=== PATIENT | female | born 1955 | race Caucasian/White ===

== ENCOUNTER 2017-01-31 07:20 | Day surgery (SDC) | payer BC ==
[2017-01-31] MEDS ORDERED: Lactated Ringers 1,000 ML IV SCH ×2 (08:00→08:30)
[2017-01-31] MEDS ORDERED: Ondansetron 4 MG/2 ML SDV IVPUSH ONE (09:20)
[2017-01-31] MEDS ORDERED: Midazolam 1 MG/ML 2 ML SDV IV ONE (09:20)
[2017-01-31] MEDS ORDERED: Propofol 200 MG/20 ML SDV IV ONE (09:20)
[2017-01-31] MEDS ORDERED: Lidocaine 2% 100 MG/5 ML Syringe IVPUSH ONE (09:20)
--- NOTE | 2017-01-31 09:24 | PCM.HPR ---
H & P Addendum review - H & P Addendum Review Date of Original H & P: 01/21/16 Date Reviewed: 01/31/17 Time Reviewed: 09:15 Patient was examined: No Changes
--- NOTE | 2017-01-31 10:23 | PCM.OPNOTE ---
- General Post-Op/Procedure Note Date of Surgery/Procedure: 01/31/17 Operative Procedure(s): EGD with BX. Colonoscopy Findings: Gastritis Normal Colon Pre Op Diagnosis: Abd Pain, Melena, diarrhea Post-Op Diagnosis: Same Primary Surgeon: Sushant Gray Anesthesia Provider: Vinicius Black Pathology: Stomach Bx's EBL in mLs: 0 Complications: None Condition: Good
[2017-01-31 12:25] VITALS: BP 130/84
--- NOTE | 2017-01-31 17:56 | OR ---
DATE OF OPERATION: 01/31/2017 SURGEON: Sushant Gray MD PREOPERATIVE DIAGNOSES: 1. Melena with history of ulcers. 2. Abdominal pain. 3. Diarrhea. POSTOPERATIVE DIAGNOSES: 1. Gastritis. 2. Normal colonoscopy. 3. Small hiatal hernia. OPERATION PERFORMED: 1. Esophagogastroduodenoscopy with biopsies. 2. Colonoscopy. ANESTHESIA: IV sedation. PROCEDURE IN DETAIL: The patient was brought to the procedure room, where she was placed on her left side and IV sedation administered. Anesthetic gargle had been given and the oral bite block was placed. Upper endoscope was advanced into the esophagus under direct vision. Vocal cords were viewed and were normal. Scope was advanced to the third portion of the duodenum. Duodenal and pylorus were normal. Antrum has diffuse mild gastritis. Near the distal body especially along the end of the lesser curve and greater curve, was more moderate gastritis. There was even what appeared to be some healing erosions present. I did take biopsies from these areas and we will check for Helicobacter pylori. The remaining body and fundus were normal. Retroflexion reveals a small hiatal hernia. The squamocolumnar junction was normal. There was no evidence of reflux esophagitis. Air was removed from the stomach and the scope withdrawn through the remaining esophagus, which appears normal. The patient tolerated this portion of the procedure well. Next, colonoscopy was performed, after digital rectal exam was performed, which was normal. The colonoscope was inserted and advanced to the level of the cecum with some difficulty getting through a tortuous sigmoid colon. The cecum was reached and confirmed by identifying the appendiceal lumen and ileocecal valve. Prep was good and surfaces were well visualized. Upon withdrawing the scope, the ascending, transverse, and descending colon were normal in appearance. The sigmoid colon and rectum were normal. I was unable to identify any diverticula even though she has a history of diverticulitis. Air was removed and the scope was withdrawn. The patient tolerated the procedure well and returned to recovery in stable condition. RECOMMENDATIONS: The patient will be contacted with the pathology report when it returns. Recommend routine colon screening again in 5 years. /[id number] SALINA/GABRIEL
== END 2017-01-31 11:26 | disposition home or self-care (01) ==
LOC: FB.SDS 07:20
PROVIDERS: ATTEND Surgery
DX: K29.50 Unspecified chronic gastritis without bleeding (principal); K44.9 Diaphragmatic hernia without obstruction or gangrene; K21.9 Gastro-esophageal reflux disease without esophagitis; I10 Essential (primary) hypertension; Z88.1 Allergy status to other antibiotic agents; Z88.8 Allergy status to other drugs, medicaments and biological substances; Z91.040 Latex allergy status; Z91.018 Allergy to other foods; Z79.899 Other long term (current) drug therapy; Z79.82 Long term (current) use of aspirin
CPT/HCPCS: 43239; 45378; 88305; J2250; J2405; J2704; J7120

== ENCOUNTER 2017-02-21 06:52 | Day surgery (SDC) | payer BC ==
[~2017-02-21 06:52] MED LIST: Lactated Ringers 1,000 ML IV SCH; Sodium Chloride 0.9% 10 ML Syringe FLUSH PRN
[2017-02-21] MEDS ORDERED: Sugammadex Sodium 200 MG/2 ML VIAL IV ONE (08:00)
[2017-02-21] MEDS ORDERED: Midazolam 1 MG/ML 2 ML SDV IV ONE (08:00)
[2017-02-21] MEDS ORDERED: Propofol 200 MG/20 ML SDV IV ONE (08:00)
[2017-02-21] MEDS ORDERED: Lactated Ringers 1,000 ML IV ONE (08:00)
[2017-02-21] MEDS ORDERED: Dexamethasone 4 MG/ML 5 ML MDV IVPUSH ONE (08:00)
[2017-02-21] MEDS ORDERED: fentaNYL 100 MCG/2 ML SDV IV ONE (08:00)
[2017-02-21] MEDS ORDERED: Scopolamine 1.5 MG Transdermal Patch TOP ONE (08:00)
[2017-02-21] MEDS ORDERED: Ondansetron 4 MG/2 ML SDV IVPUSH ONE (08:00)
[2017-02-21] MEDS ORDERED: ePHEDrine 50 MG/ML SDV IV ONE (08:00)
[2017-02-21] MEDS ORDERED: Succinylcholine/Normal Saline 200 MG/10 ML Syringe IV ONE (08:00)
[2017-02-21] MEDS ORDERED: Rocuronium 100 MG/10 ML MDV IV ONE (08:00)
[2017-02-21] MEDS ORDERED: Ketorolac 30 MG/ML SDV IVPUSH ONE (08:00)
[2017-02-21] MEDS ORDERED: diphenhydrAMINE 50 MG/ML SDV IV ONE (08:00)
[2017-02-21] MEDS ORDERED: HYDROmorphone 2 MG/ML SDV IVPUSH PRN (08:08)
[2017-02-21] MEDS ORDERED: Ondansetron 4 MG/2 ML SDV IVPUSH PRN (08:08)
[2017-02-21] MEDS ORDERED: fentaNYL 100 MCG/2 ML SDV IVPUSH PRN (08:08)
--- NOTE | 2017-02-21 08:22 | PCM.HPR ---
H & P Addendum review - H & P Addendum Review Date of Original H & P: 02/10/17 Date Reviewed: 02/21/17 Time Reviewed: 08:00 Patient was examined: No Changes Please note any Changes: ok to proceed with lap tyron
--- NOTE | 2017-02-21 09:24 | PCM.OPNOTE ---
- General Post-Op/Procedure Note Date of Surgery/Procedure: 02/21/17 Operative Procedure(s): Lap Stacy Pre Op Diagnosis: Chronic Cholecystitis Post-Op Diagnosis: Same Anesthesia Technique: General ET tube Primary Surgeon: Sushant Gray Anesthesia Provider: Vinicius Black EBL in mLs: 10 Complications: None Condition: Good
[2017-02-21 11:57] VITALS: BP 131/84
--- NOTE | 2017-02-21 13:56 | OR ---
DATE OF OPERATION: 02/21/2017 SURGEON: Sushant Gray MD PREOPERATIVE DIAGNOSIS: Chronic cholecystitis. POSTOPERATIVE DIAGNOSIS: Chronic cholecystitis. PROCEDURE: Laparoscopic cholecystectomy. ANESTHESIA: General endotracheal. DESCRIPTION OF PROCEDURE: The patient was brought to the operating room, where general endotracheal anesthesia was administered. The abdomen was prepped with ChloraPrep and draped sterilely. An infraumbilical incision was made and extended into the peritoneal cavity without difficulty. The remaining three 5 mm ports were placed in the usual positions. The patient was placed in reverse Trendelenburg position and rotated to the left. The gallbladder was large and floppy and grasped and retracted cephalad. The gallbladder was long, and when retracted, the common bile duct was visible. The cystic artery and cystic duct were carefully dissected free without difficulty. Each of these structures was doubly clipped proximally and once distally and then transected. The gallbladder was removed from the bed of the liver using electrocautery without difficulty. No bile leakage occurred. Gallbladder was brought out through the umbilical incision site. A right upper quadrant was thoroughly inspected, and minimal oozing was controlled with electrocautery. The rest of the general exploration revealed the surface of the liver, stomach, peritoneum, visible bowel, and omentum to be normal in appearance. The ports were removed under direct vision. The umbilical fascia was closed with [id number] Vicryl. Skin was closed with 4-0 Vicryl subcuticular sutures. Benzoin and Steri-Strips were placed and Band-Aids applied. The patient tolerated the procedure well. Estimated blood loss was 10 mL. She returned to postanesthesia in stable condition. /[id number] SALINA/GABRIEL
== END 2017-02-21 11:55 | disposition home or self-care (01) ==
LOC: FB.SDS 06:52
PROVIDERS: ATTEND Surgery
DX: K81.1 Chronic cholecystitis (principal); Z88.1 Allergy status to other antibiotic agents; Z88.8 Allergy status to other drugs, medicaments and biological substances; Z91.040 Latex allergy status; Z91.018 Allergy to other foods
CPT/HCPCS: 47562; A9270; J1100; J1200; J1885; J2250; J2405; J2704; J3010; J7120; 88304